=== PATIENT | female | born 1965 | race Asian ===

== ENCOUNTER → 2017-02-22 | Outpatient (CLI) | payer BC | LOC: MC.RAD 02-10 14:40 | DX: Z12.31 Encounter for screening mammogram for malignant neoplasm of breast (principal) ==

== ENCOUNTER → 2018-05-04 | Outpatient (CLI) | payer BC | LOC: MC.RAD 16:20 | DX: Z12.31 Encounter for screening mammogram for malignant neoplasm of breast (principal) ==

== ENCOUNTER 2024-04-03 08:24 | Day surgery (SDC) | payer BC ==
[~2024-04-03] VITALS: Ht 152.4 cm; Wt 95.2 kg
[~2024-04-03 08:24] MED LIST: LR 1,000 ML IV SCH; Ondansetron 4 MG/2 ML VIAL IV PRN
[2024-04-03] MEDS ORDERED: LIPITOR 40MG TA40 MG PO (08:55)
[2024-04-03] MEDS ORDERED: SYNTHROID0.05 MG/TA PO (08:55)
[2024-04-03] MEDS ORDERED: ASPIRIN 81M81 MG/TA2 PO (08:56)
[2024-04-03 09:15] VITALS: BP 126/77; PULSE 86; TEMP 97.4
[2024-04-03 10:40] VITALS: BP 124/70; PULSE 69
--- NOTE | 2024-04-03 10:40 | NUR ---
PATIENT IS DROWSY, BUT AWAKENS TO VOICE. ABLE TO WALK FROM CART TO CHAIR WITH 2 ASSIST, STEADY GAIT. STATES "I FEEL TIRED". DENIES PAIN, NAUSEA AND SHORTNESS OF BREATH. BREATHING REGULAR AND UNLABORED ON ROOM AIR. SKIN WARM AND DRY. IV IN PLACE. NURSE HANDOFF COMPLETED IN ROOM. SEE CHART FOR VITAL SIGNS. CALL LIGHT IN REACH.
[2024-04-03 10:45] VITALS: BP 118/71; PULSE 68
--- NOTE | 2024-04-03 10:48 | NUR ---
PATIENT ALERT AND ORIENTED X3. DENIES PAIN, NAUSEA AND SHORTNESS OF BREATH. PATIENT HAD CRANBERRY JUICE AND A MUFFIN. BOTH FOOD AND DRINK TOLERATED WELL. CALL LIGHT IN REACH.
[2024-04-03 11:00] VITALS: BP 127/72; PULSE 60
[2024-04-03 11:15] VITALS: BP 119/81; PULSE 69
[2024-04-03 11:20] VITALS: BP 130/71; PULSE 67
--- NOTE | 2024-04-03 11:28 | NUR ---
1110: MET WITH PATIENT AND TATE (BROTHER) IN ROOM TO DISCUSS PROCEDURE. 1120: DISCHARGE TEACHING COMPLETED WITH PRINTED EDUCATION AND INSTRUCTIONS SENT HOME WITH PATIENT. PATIENT VERBALIZED UNDERSTANDING OF TEACHING. 1122: IV REMOVED. GAUZE AND COBAN PLACED OVER SITE. 1128: PATIENT DISCHARGED HOME WITH TATE TRANSPORT.
== END 2024-04-03 11:28 | disposition home or self-care (01) ==
LOC: SDCO 08:24
DX: Z12.11 Encounter for screening for malignant neoplasm of colon (principal); K63.5 Polyp of colon; E66.9 Obesity, unspecified; Z86.16 Personal history of COVID-19
CPT/HCPCS: J2704; J7120